=== PATIENT | female | born 1985 | race Caucasian/White ===

== ENCOUNTER 2020-05-01 22:47 | Inpatient (IN) | payer SELFPAY ==
[2020-05-01] VITALS (15 sets, daily range): BP systolic 50–121; BP diastolic 30–70; PULSE 102–142; TEMP 35.4; O2SAT 73–100
[2020-05-01] MEDS: Lactated Ringers 1,000 ML 999 ML IV ×2 (22:55→23:52)
[2020-05-01] MEDS: Oxytocin 30 units/NS 500 ml 30 UNITS/500 ML IV.SOLN 334 UNITS IV (23:27)
[2020-05-01 23:30] LABS: Basophil# 0.05 X10^3/uL; Basophil% 0.5 % (0-1); Eosinophil# 0.07 X10^3/uL; Eosinophils% 0.8 % (0-5); Hematocrit 35.8 % (37-47); Hemoglobin 12.2 g/dL (12.0-15.0); Lymphocyte % 23.8 % (19-41); Mean Corp Hgb Conc 34.1 g/dL (32-36); Mean Corpuscular Volume 96.8 fL (81-99); Mean Platelet Vol. 9.8 fl (6.2-12.0); Monocyte# 0.64 X10^3/uL; Monocyte% 6.9 % (0-10); NRBC Flagged by Analyzer 0 % (0-5); Neutrophil # 6.02 X10^3/uL (2.7-7.7); Neutrophil % 65.2 % (47-70); Platelet Count 197 K/mm3 (150-450); RBC Distribution Width SD 45.9 fl (35.1-43.9); White Blood Count 9.2 K/mm3 (4.4-11.0)
[2020-05-01] MEDS: Methylergonovine 0.2 MG/ML Ampul IM (23:48)
[2020-05-01] MEDS: 0.9% Saline Lock 10 ML Syringe IV (23:52)
[2020-05-02] VITALS (26 sets, daily range): BP systolic 106–155; BP diastolic 55–82; PULSE 87–107; RESP 14–16; TEMP 36–36.5; O2SAT 99–100; BMI 46.3
--- NOTE | 2020-05-02 00:09 | PCM.HP.OB ---
- Problem List (1) Placental abruption Status: Acute (2) Post-dates Status: Acute History Date of Admission: 05/02/20 Final VAL: 04/24/20 Gestational age: 41 Weeks and 1 Days History of this : This is a 35 year-old, at 41 weeks gestational age presents with placental abruption and delivers precipitously. At 2225 her player development manager contacted the physician with the assessment that there was heavy vaginal bleeding and passage of tissue, FHT 130 at that time. Labor and delivery immediately notified and the team including physician was present ready for patient arrival and assessment. At 2250 patient presented to the labor and delivery unit and was placed in a room and bedside ultrasound was performed by the provider. EBL in her pad was noted to be at least 100 cc of blood and large clot. Patient was morbidly obese with anhydramnios noted, was vertex, and for several minutes patient was scanned with the use of color Doppler to aid in assessment. no color flow was seen inside both the abdominal cavity, limbs, and inside the head. It was difficult to obtain views of the chest due to the body habitus, positioning, and the anhydramnios. No visualized cardiac motion was seen but visualization was difficult hence why the color Doppler flow was utilized to assess status. after initial assessment a second ultrasound assessment was performed and again no color flow was noted in the fetus, and color flow was seen on the peripherary in the uterus itself. Patient was checked and she was 8 to 9 cm and due to the suspected demise, maternal stability, and imminent delivery the decision was made to proceed with a vaginal delivery. Within a few minutes patient was complete and began pushing and delivered at 2317 with initial no tone. The umbilical cord was palpated and several beats palpated at approximately 60-70 bpm and therefore resuscitation was started. Please see nursery notes for infant assessment. Allergies No Known Allergies Allergy (Verified 05/01/20 23:34) Alcohol: None History Past Pregnancies: Past Pregnancies 8 previous term vaginal deliveries at home with no complications. One early miscarriage no surgical intervention needed Expected Delivery Method: Spontaneous Vaginal Review of Systems Constitutional: Denies: Fever, Malaise Eyes: Denies: Blurred vision, Vision Change HEENT: Denies: Head Aches, Visual Changes Cardiovascular: Denies: Chest Pain, Palpitations Respiratory: Denies: Cough, Shortness of Breath, Wheezing Gastrointestinal: Denies: Abdominal Pain, Diarrhea, Nausea, Vomiting Genitourinary: Denies: Dysuria, Hematuria Gynecological: Reports: Vaginal bleeding Musculoskeletal: Denies: Joint Pain, Muscle pain Skin: Denies: Lesions, Rash Neurological: Denies: Blurred vision, Focal weakness, Headaches Psychiatric: Denies: Anxiety, Depression Endocrine: Denies: Heat/ Cold Intolerance Hematologic/ Lymphatic: Denies: Easy Bruising, Easy Bleeding Physical Exam Vitals: Vital Signs Temp Pulse BP Pulse Ox 95.7 F L 93 114/62 100 05/01/20 23:08 05/02/20 00:06 05/02/20 00:06 05/02/20 00:03 General: Alert, Cooperative, - - Visibly painful HEENT: Atraumatic, Normocephalic. Negative for: Thyromegaly, Lymphadenopathy Cardiovascular: Tachycardic Lungs: Normal air movement Abdomen: Gravid, - - Uterus firm with regular contractions, tender Neurological: Neuro grossly intact NEON TUBE BENDER: Normal external genitalia. Negative for: Vulvar lesions Estimated gestational size: Large for gestational age Presentation: Cephalic Cervix Dilation (cm): 8.5 Station: 0 Effacement (%): 100 - 100 cc blood present on pad with clot Assessment/Plan All Active Problems Placental abruption (Acute) Post-dates (Acute) hemorrhage (Acute) This is a 35 year-old, weeks with placental abruption and precipitous delivery Vaginal delivery with hemorrhage. No care labs sent along with PT PTT INR fibrinogen, TSH, hemoglobin A1c, and Kleihauer-Betke.
[2020-05-02 00:20] LABS: Fibrinogen 465 mg/dl (203-444)
[2020-05-02 00:26] LABS: Hemoglobin A1c 5.2 % (3.8-5.6)
--- NOTE | 2020-05-02 00:27 | OP.PCM_ITS ---
Problem List (1) Placental abruption Status: Acute (2) Post-dates Status: Acute (3) hemorrhage Status: Acute Vaginal Delivery Maternal Presentation: Active Labor 35 yo @ 41 weeks presents with vaginal bleeding and placental abruption and initial suspected demise with subsequent live . Medical Reason for Induction: Abruption Amniotic Membrane Rupture Type: Spontaneous at home Amniotic Fluid Description: Bloody Final VAL: 04/24/20 Gestational age: 41 Weeks and 1 Days Date of Procedure: 05/01/20 Pre-Operative Diagnosis: placental abruption precipitous delivery Post-Operative Diagnosis: same Surgery/ Procedure Performed: Spontaneous Vaginal Delivery Type of Anesthesia: None Description of Procedure: At 2225 her core laying machine operator contacted the physician with the assessment that there was heavy vaginal bleeding and passage of tissue, FHT 130 at that time. Labor and delivery immediately notified and the team including physician was present ready for patient arrival and assessment. At 2250 patient presented to the labor and delivery unit and was placed in a room and bedside ultrasound was pe rformed by the provider. EBL in her pad was noted to be at least 100 cc of blood and large clot. Patient was morbidly obese with anhydramnios noted, was vertex, and for several minutes patient was scanned with the use of color Doppler to aid in assessment. no color flow was seen inside both the abdominal cavity, limbs, and inside the head. It was difficult to obtain views of the chest due to the body habitus, positioning, and the anhydramnios. No visualized cardiac motion was seen but visualization was difficult hence why the color Doppler flow was utilized to assess status. after initial assessment a second ultrasound assessment was performed and again no color flow was noted in the fetus, and color flow was seen on the peripherary in the uterus itself. Patient was checked and she was 8 to 9 cm and due to the suspected demise, maternal stability, and imminent delivery the decision was made to proceed with a vaginal delivery. Within a few minutes patient was complete and began pushing and delivered the head in the WHITNEY presentation with a large gush of blood following after the head presented. Nuchal cord was noted loose and reduced over the head and then the anterior and posterior shoulders were delivered. Initially there was no tone. The umbilical cord was palpated and several beats palpated at approximately 60-70 bpm and there was an attempt respiration by the and therefore resuscitation was started with the blueprint processor, special care nursery, and respiratory called. Please see nursery notes for assessment. Placenta was delivered within a few minutes, cord gases had been sent and cord pH arterial was 6.94 with a base excess of -12.5. The edge of the placenta was noted to have at least a 20% abruption with some of the membranes with a ratty appearance and therefore bedside ultrasound was performed to assess the uterine lining. Banjo curette was utilized to assist the lining and this was done with direct visualization by ultrasound. Small amount of membranes were removed and then no additional tissue was obtained. EBL 600 cc with hemorrhage due to blood loss from the abruption, Methergine and Pitocin had been given at delivery. Patient developed significant hypotension in the 50s over 30s with a heart rate of 115 therefore fluid resuscitation with LR and Hespan was given, and anesthesia gave ephedrine. These interventions were successful and blood pressure stabilized in the 110s over 60s with heart rate 100 or less. Hemoglobin at initial assessment IV placement was 12. 2 units were typed and crossed and put on hold but not transfused. no laceration noted. Presentation: WHITNEY Placental Delivery Description: Spontaneous, Curettage Placenta Disposition: [facility] Percentage of Placenta Abruption: 20 Cord Vessel Description: 3 Vessels Nuchal Cord Compression: With compression Cord Gases drawn per routine: ABG - ph 6.94 BE -12.5, VBG - pH 7.04 Cord Entanglement: Around neck x 1, loose Estimated Blood Loss: 600 Infant A gender: Female Episiotomy Description: None Laceration: None Medications given after delivery: IV Pitocin, IM Methergin Complications: - - pph due to abruption Multi Select Codes - Urinary/Genital Urinary/Genital CPT Codes: 83814 Suprapubic Catheter - , 70117 Vaginal Delivery Only
[2020-05-02 00:33] LABS: International Normalized Ratio 1.1; Prothrombin Time (Protime)PT. 13.3 SECONDS (11.7-14.9)
[2020-05-02 00:34] LABS: Partial Thromboplast Time 26.7 Seconds (24.1-36.2)
--- NOTE | 2020-05-02 01:01 | DCINST_ITS ---
Discharge Diet: No Restrictions Discharge Activity: Return to Normal Activity, May not drive while taking narcotic pain medications., May Shower May resume sexual activity in: 4-6 weeks Call your doctor if your incision/area has: Continuous Slow Oozing, Sudden Increased Bleeding, Increased Pain/ Swelling, Increased Redness, Foul Smelling Discharge Additional Instructions: If you experience any of the following, contact your healthcare provider. * Bleeding that soaks a pad every hour for 2 hours * Fever 100.4 or higher * Unrelieved incision or abdominal pain * Swelling, redness, discharge or bleeding from your incision or episiotomy site * Your incision begins to separate * Problems urinating (including inability to urinate or burning while urinating). * Visual changes * Severe headache * Flu-like symptoms * Pain or redness in one of both of your breasts * Pain, warmth, tenderness or swelling in your legs, especially the calf area * Frequent nausea and vomiting * Symptoms of depression or anxiety If you experience any of the following, call 911 or go to the nearest Emergency Room. * Chest pain * Problems breathing * Seizure activity * Partial or complete paralysis of a body part, slurred speech, weakness or drooping of the face, or a sudden inability to walk or hold your balance Allergies/Adverse Reactions: Allergies No Known Allergies Allergy (Verified 05/01/20 23:34) Please Follow Up With: Melba Ceja MD - [phone] When: Call to make an appointment with your doctor in 6 weeks. If you had elevated Blood pressure or 4th degree laceration you will need to be seen in 2 weeks. Test Results: Test results from this visit will be discussed in further detail at your follow- up appointment, if applicable.
--- NOTE | 2020-05-02 01:01 | PCM.DCVAG ---
Discharge Diet: No Restrictions Discharge Activity: Return to Normal Activity, May not drive while taking narcotic pain medications., May Shower May resume sexual activity in: 4-6 weeks Call your doctor if your incision/area has: Continuous Slow Oozing, Sudden Increased Bleeding, Increased Pain/ Swelling, Increased Redness, Foul Smelling Discharge Additional Instructions: If you experience any of the following, contact your healthcare provider. Bleeding that soaks a pad every hour for 2 hours Fever 100.4 or higher Unrelieved incision or abdominal pain Swelling, redness, discharge or bleeding from your incision or episiotomy site Your incision begins to separate Problems urinating (including inability to urinate or burning while urinating). Visual changes Severe headache Flu-like symptoms Pain or redness in one of both of your breasts Pain, warmth, tenderness or swelling in your legs, especially the calf area Frequent nausea and vomiting Symptoms of depression or anxiety If you experience any of the following, call 911 or go to the nearest Emergency Room. Chest pain Problems breathing Seizure activity Partial or complete paralysis of a body part, slurred speech, weakness or drooping of the face, or a sudden inability to walk or hold your balance Allergies/Adverse Reactions: Allergies No Known Allergies Allergy (Verified 05/01/20 23:34) Please Follow Up With: Melba Ceja MD - [phone] When: Call to make an appointment with your doctor in 6 weeks. If you had elevated Blood pressure or 4th degree laceration you will need to be seen in 2 weeks. Test Results: Test results from this visit will be discussed in further detail at your follow-up appointment, if applicable.
[2020-05-02 01:14] LABS: Alanine Aminotransfer ALT/SGPT 13 U/L (13-56); Creatinine, Serum 0.73 mg/dL (0.55-1.02); EST Glomerular Filtration Rate 96 mL/min (>60); Est Glom Filt Rate - Afr Amer 116 mL/min (>60); Thyroid Stim Hormone (TSH) 4.05 uIU/mL (0.358-3.74); Uric Acid 5.5 mg/dL (2.6-6.0)
[2020-05-02 01:18] LABS: AST(SGOT) 16 U/L (15-37)
[2020-05-02 01:42] LABS: Hematocrit 28.2 % (37-47); Hemoglobin 9.8 g/dL (12.0-15.0); Mean Corp Hgb Conc 34.8 g/dL (32-36); Mean Corpuscular Hgb 33.9 pg (27.0-32.0); Mean Corpuscular Volume 97.6 fL (81-99); Mean Platelet Vol. 9.7 fl (6.2-12.0); Platelet Count 159 K/mm3 (150-450); RBC Distribution Width CV 13.2 % (11.6-14.6); RBC Distribution Width SD 46.8 fl (35.1-43.9); Red Blood Count 2.89 M/mm3 (4.2-5.4); White Blood Count 18.3 K/mm3 (4.4-11.0)
[2020-05-02] MEDS: 0.9% Saline Lock 10 ML Syringe IV (01:54)
--- NOTE | 2020-05-02 03:13 | NURSING ---
Double pump set up for pt and pt began pumping at this time. Education provided and questions answered. Pt verbalizes understanding.
[2020-05-02 07:02] LABS: Bacteria 0 SEEN /hpf (None Seen); Mucous, Urine 0 SEEN /hpf (<or=2+)
--- NOTE | 2020-05-02 07:08 | PN.OBGYN_ITS ---
Patient Problems: Active and Suspected Problems Placental abruption (Acute) Post-dates (Acute) hemorrhage (Acute) Subjective: Blood pressures stable, patient ambulating and voiding tolerating adequate p.o. No significant dizziness or lightheadedness with ambulation. Bleeding minimal. No chest pain or shortness of breath - Physical Exam Vitals/I&O's: Vital Signs Temp Pulse Resp BP Pulse Ox 97.6 F L 88 16 119/76 100 05/02/20 05:56 05/02/20 05:56 05/02/20 05:56 05/02/20 05:56 05/02/20 05:56 Oxygen Delivery Method Room Air Weight: 270 lb Body Mass Index (BMI) 46.3 Intake and Output for Last 24 Hours 04/30/20 05/01/20 05/02/20 23:59 23:59 23:59 Intake Total 532.8 / 716.5 2000.0 / 2000.0 Output Total 1900 / 1900 Balance 532.8 / 716.5 100.0 / 100.0 General: Alert, Oriented x3 Cardiovascular: Regular rate Abdomen: Soft, Non Tender, Non-Distended Extremities: Edema Laboratory Results 05/01/20 22:55: PT 13.3, INR 1.1, APTT 26.7 05/01/20 22:55: Creatinine 0.73, Est GFR (MDRD) Af Amer 116, Est GFR (MDRD) Non- Af 96, Uric Acid 5.5, ALT 13, TSH 4.05 H 05/01/20 22:55: Hemoglobin A1c 5.2 05/01/20 22:55: Kleihauer-Betke F Hgb Pending 05/01/20 22:55: Fibrinogen 465 H 05/01/20 22:55: WBC 9.2, RBC 3.70 L, Hgb 12.2, Hct 35.8 L, MCV 96.8, MCH 33.0 H, MCHC 34.1, RDW Std Deviation 45.9 H, RDW Coeff of Faiza 13.0, Plt Count 197, MPV 9.8, Immature Gran % (Auto) 2.800 H, Neut % (Auto) 65.2, Lymph % (Auto) 23.8, [place] % (Auto) 6.9, Eos % (Auto) 0.8, Baso % (Auto) 0.5, Absolute Neuts (auto) 6.0, Absolute Lymphs (auto) 2.20, Nucleated RBC % 0 05/01/20 22:55: Blood Type O POSITIVE, Antibody Screen NEGATIVE 05/01/20 22:55: AST 16 05/01/20 22:55: Crossmatch See Detail 05/02/20 01:30: WBC 18.3 H, RBC 2.89 L, Hgb 9.8 L, Hct 28.2 L, MCV 97.6, MCH 33.9 H, MCHC 34.8, RDW Std Deviation 46.8 H, RDW Coeff of Faiza 13.2, Plt Count 159, MPV 9.7 05/02/20 02:28: Syphilis Total Ab Pending, Rubella IgG Antibody Pending 05/02/20 02:28: Hep Bs Antigen Pending, Hepatitis C Antibody Pending, HIV 1&2 Antibody Pending 05/02/20 02:45: Urine Color Pending, Urine Clarity Pending, Urine pH Pending, Ur Specific [place] Pending, Urine Protein Pending, Urine Glucose (UA) Pending, Urine Ketones Pending, Urine Occult Blood Pending, Urine Nitrite Pending, Urine Bilirubin Pending, Urine Urobilinogen Pending, Ur Leukocyte Esterase Pending, Urine RBC Pending, Urine WBC Pending, Ur Squamous Epith Cells Pending, Urine Bacteria Pending, Urine Mucus Pending 05/02/20 02:45: Chlam trachomat DNA PCR Pending, N.gonorrhoeae DNA (PCR) Pending 05/02/20 02:45: Urine Opiates Screen Pending, Urine Methadone Screen Pending, Ur Barbiturates Screen Pending, Ur Phencyclidine Scrn Pending, Ur Amphetamines Screen Pending, U Methamphetamin-MDMA Pending, U Benzodiazepines Scrn Pending, Urine Cocaine Screen Pending, U Cannabinoids Screen Pending, Ur Drug Screen Comment Current Medications Acetaminophen (Acetaminophen 500 Mg Tablet) 1,000 mg PO Q8H PRN PRN PRN Reason: Pain Score 1-3 Bisacodyl (Bisacodyl 10 Mg Suppository) 10 mg RC UD PRN PRN Reason: If no BM Dibucaine (Dibucaine 30 Gm Tube) 1 applic TOPICAL TID PRN PRN; Protocol PRN Reason: Discomfort Hydrocortisone (Hydrocortisone 2.5% Crm) 1 applic TOPICAL TID PRN PRN; Protocol PRN Reason: Discomfort Methylergonovine Maleate (Methylergonovine 0.2 Mg/Ml Ampul) 0.2 mg IM X1 PRN PRN Reason: Excess bleeding/uterine atony Last Admin: 05/01/20 23:48 Dose: 0.2 mg Documented by: Naproxen (Naproxen 250 Mg Tablet) 500 mg PO Q8H PRN PRN PRN Reason: Pain Score 1-3 Ondansetron HCl (Ondansetron 4 Mg/2 Ml Vial) 4 mg IV Q4H PRN PRN PRN Reason: Nausea Oxycodone HCl (Oxycodone 5 Mg Tablet) 5 - 10 mg PO Q4H PRN PRN PRN Reason: Pain Score 4-10 Senna/Docusate Sodium (Senna/Docusate Sodium 1 Tablet) 1 - 2 tablet PO DAILY PRN PRN PRN Reason: Constipation Simethicone (Simethicone 80 Mg Tablet) 80 mg PO PCHS PRN PRN Reason: Indigestion/Stomach pain Sodium Chloride (0.9% Saline Lock 10 Ml Syringe) 5 - 15 ml IV UD PRN PRN Reason: SALINE FLUSH Last Admin: 05/02/20 01:54 Dose: 10 ml Documented by: Medical Necessity - Tobacco Use Smoking Status: Never smoker Assessment/Plan All Active Problems Placental abruption (Acute) Post-dates (Acute) hemorrhage (Acute) 35-year-old status post vaginal delivery placental abruption with hemorrhage Anemia secondary to acute blood loss plan iron/chlorophyll at home transported to [facility], patient stable enough for discharge with bleeding precautions reviewed we will follow-up with us in the office or with her asset availability leader.
[2020-05-02 07:12] LABS: Color, Urine Red (Yellow); Glucose, Dipstick Normal (Normal); Ketone-Dipstick Negative (Negative); Leukocyte Esterase-Dipstick 100 /ul (Negative); Nitrite-Dipstick Negative (Negative); Occult Blood-Urine 250 /ul (Negative); Protein-Dipstick 100 mg/dl (Negative); Urine Bilirubin Dipstick Negative (Negative); Urine Clarity Sl. Cloudy (Clear); Urine Urobilinogen Normal (Normal); Urine pH 6.5 (5.0 - 8.0)
[2020-05-02 07:21] LABS: Amphetamine Urine VISTA NEGATIVE (<1000 ng/mL); Barbiturate Urine VISTA NEGATIVE (< 200 ng/mL); Benzodiazepine Urine VISTA NEGATIVE (< 200 ng/mL); Cocaine Urine VISTA NEGATIVE (< 300 ng/mL); Ecstacy Urine VISTA NEGATIVE (< 500 ng/mL); Methadone Urine VISTA NEGATIVE (< 300 ng/mL); PCP Urine VISTA NEGATIVE (< 25 ng/mL); THC Urine VISTA NEGATIVE (< 50 ng/mL); Vista UDS pH Range 6
[2020-05-02 08:30] LABS: Red Blood Cells-Urine > 100 SEEN /hpf (0-5); Squamous Epithelial Cells - UA 0-5 SEEN /hpf (5-10); White Blood Cells 0-5 SEEN /hpf (0-5)
[2020-05-02 08:46] LABS: Rubella IgG Reactive (Nonreactive); Syphilis Antibodies Non-reactive
[2020-05-02 08:54] LABS: Kleihauer-Betke POSITIVE
[2020-05-02 09:02] LABS: HIV - WCH Non-Reactive (Nonreactive); Hepatitis B Surface Antigen Non-Reactive (Nonreactive); Hepatitis C Antibody Non-Reactive (Nonreactive)
[2020-05-02 09:11] LABS: Chlamydia Trachomatis by PCR Negative (Negative); Neisserai gonorrhoeae by PCR Negative (Negative); Probe Check PASS; Sample Adequacy Control PASS; Specimen Processing Control PASS
== END 2020-05-02 09:30 | disposition home or self-care (01) | DRG 806 ==
PROVIDERS: Admitting Provider Obstetrics & Gynecology; Visit Provider Obstetrics & Gynecology
DX: O45.93 Premature separation of placenta, unspecified, third trimester (principal); O72.1 Other immediate postpartum hemorrhage; Z37.0 Single live birth; D62 Acute posthemorrhagic anemia; O99.214 Obesity complicating childbirth; E66.01 Morbid (severe) obesity due to excess calories; O69.1XX0 Labor and delivery complicated by cord around neck, with compression, not applicable or unspecified; Z3A.41 41 weeks gestation of pregnancy; O90.81 Anemia of the puerperium
CPT/HCPCS: 76815; 80307; 81001; 82565; 83036; 84443; 84450; 84460; 84550; 85025; 85027; 85384; 85460; 85610; 85730; 86703; 86762; 86803; 86850; 86900; 86901; 86920; 86922; 87340; 87491; 87591; 99218; J7120; A4216; G0378